=== PATIENT | female | born 1965 | race American Indian/Alaskan Native ===

== ENCOUNTER 2022-04-04 10:33 | Outpatient (CLI) | payer OTHER ==
--- NOTE | 2022-04-04 12:21 | XRay Report ---
Cervical spine, 3 views HISTORY: Pain COMPARISON: None FINDINGS: There is straightening of normal cervical lordosis. Cervical spinal alignment is preserved. Moderate multilevel disc space height loss with marginal osteophytes, greatest at C4-C7. No evidence of fracture. Odontoid view is preserved. Prevertebral soft tissues are within normal limits. IMPRESSION: Moderate cervical spondylosis. No acute findings. Signer Name: Kareem Avitia MD Signed: 04/04/2022 12:16 PM Workstation Name: [id number]
--- NOTE | 2022-04-04 12:23 | XRay Report ---
LUMBOSACRAL SPINE 3 VIEWS INDICATION: BACK PAIN. COMPARISON: None. IMPRESSION: There is 5 mm anterolisthesis of L4 with respect to L5. The remaining lumbar vertebra ar e normal in alignment. There is been previous posterior fusion at L4-5 without obvious acute abnorma lity. 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 There are mild symmetric dege nerative changes at the SI joints. No acute osseous or soft tissue abnormality. Signer Name: Harman Falcon Jr, MD Signed: 04/04/2022 12:18 PM Workstation Name: [id number]
== END 2022-04-04 10:34 | disposition home or self-care (01) ==
LOC: XRAY 10:33
PROVIDERS: ATTEND Internal Medicine
DX: M47.817 Spondylosis without myelopathy or radiculopathy, lumbosacral region (principal); M47.898 Other spondylosis, sacral and sacrococcygeal region; M47.812 Spondylosis without myelopathy or radiculopathy, cervical region; M25.78 Osteophyte, vertebrae
CPT/HCPCS: 72040; 72100